=== PATIENT | male | born 1980 | race Caucasian/White ===

== ENCOUNTER 2023-05-02 04:49 | Emergency (ER) | payer OTHER ==
[~2023-05-02] VITALS: Ht 175.3 cm; Wt 86.2 kg
[2023-05-02] MEDS ORDERED: FAMOTIDINE 20MG VIAL IV ONE (05:00)
[2023-05-02] MEDS ORDERED: DEXAMETHASONE SOD PHOSPHATE 4 MG/ML 1ML VIAL IV ONE (05:00)
[2023-05-02] MEDS ORDERED: 0.9%NACL 1000ML 1,000 ML IV ONE (05:00)
[2023-05-02] MEDS ORDERED: HYDROXYZINE 25 MG TABLET PO ONE (05:00)
[2023-05-02] MEDS ORDERED: EPIN0.3P3 IJ (06:11)
[2023-05-02] MEDS ORDERED: HYDR50CA50 PO (06:11)
[2023-05-02] MEDS ORDERED: CETI10CA5 PO (06:11)
[2023-05-02 06:33] VITALS: BP 113/65; PULSE 60; RESP 16; O2SAT 98
== END 2023-05-02 06:34 | disposition home or self-care (01) ==
LOC: EDH 04:49
DX: T78.40XA Allergy, unspecified, initial encounter (principal)
CPT/HCPCS: 99284; 96374; 96361; 96375; J1100; J3490